=== PATIENT | male | born 1945 | race Caucasian/White ===

== ENCOUNTER 2017-01-30 05:41 | Day surgery (SDC) | payer OTHER, MEDICARE ==
[2017-01-30] VITALS (9 sets, daily range): BP systolic 113–153; BP diastolic 79–94; PULSE 55–74; RESP 11–20; O2SAT 93–98
[~2017-01-30] VITALS: Ht 182.9 cm; Wt 95.4 kg
[~2017-01-30 05:41] MED LIST: ALBU18HF INH; ASPI-973 PO; DOCU240C41 PO; KEN25CR EXT; LISI10TA PO; PRAV10TA2 PO; TAMS0.4C98 PO; levoFLOXacin Inj 500 MG in IV Premix 1 EACH IV SCH
[2017-01-30] MEDS ORDERED: fentaNYL-PF 50 mCg/mL 2 mL Inj ONE (05:42)
[2017-01-30] MEDS ORDERED: levoFLOXacin 500 mg/100 mL D5W Premix IV ONE ×2 (05:42→05:45)
[2017-01-30] MEDS ORDERED: Propofol 10,000 mCg/mL 20 mL Inj ONE (05:42)
[2017-01-30] MEDS ORDERED: Ondansetron 2 mg/mL 2 mL Inj ONE (05:42)
[2017-01-30] MEDS ORDERED: Dexamethasone 10 mg/mL Inj ONE (05:42)
[2017-01-30] MEDS: Lactated Ringer's 1,000 ML IV SCH ×2 (06:28→07:28)
[2017-01-30] MEDS ORDERED: Lactated Ringer's 500 ML IV PRN (07:26)
[2017-01-30] MEDS ORDERED: Lactated Ringer's 1,000 ML IV SCH (07:26)
--- NOTE | 2017-01-30 07:26 | PCM.HPANE ---
Patient Data Surgeon Admitting Provider: Attending Provider:Ramon English MD Primary Care Physician:Jose Jordan MD Other Provider:Angelika Reyingham Anesthesia Reason for Visit History Of Urethral Cancer Ht/WT & BMI Height (Feet): 6 Height (Inches): 0 Weight (Kilograms): 95.4 Body Mass Index 28.00 Allergies Coded Allergies: oxybutynin (Verified Allergy, Unknown, rash, 01/22/17) Past Anesthesia History Anesthesia History: Positive for:: Anesthesia Reactions (low O2 sats after initial bladder surgery, sensitive to meds), Denies:: Abnormal Airway, Difficult Intubation, Malignant Hyperthermia Diabetes History Hx Diabetes?: No MRSA MRSA: Yes (After [employer] shunt at located within [facility] 2009- resolved no further infections) Medications Blood Thinner: Aspirin Hypertension Medication: Yes Home Meds Incl Beta Keiry: No Reported Medications Lisinopril 10 Mg [id number] Mg PO DAILY 30 Days Ref 0 01/22/17 Docusate Calcium (Stool Softener)240 Mg Capsule2 Capsule PO HS PRN For Constipation 01/22/17 Albuterol Sulfate (Ventolin HFA Inhaler)200 Puff/18 Gm Inhaler2 Puff INH Q4 PRN For Wheezing #1 INHALER Ref 0 01/22/17 Triamcinolone Acet (Triamcinolone Acetonide Cream)1 Applic/0.25 Gm Cr1 Applic EXT BID #60 GM Ref 0 01/22/17 Aspirin 81 Mg [id number] Mg PO DAILY Ref 0 01/22/17 Pravastatin 10 Mg [id number] Mg PO HS Ref 0 01/22/17 Discontinued Reported Medications Tamsulosin (Flomax)0.4 Mg Capsule0.4 Mg PO DAILY Ref 0 01/22/17 History History of ENT Problems?: No HEENT History: Denies:: Abnormal Airway Difficult Intubation Hearing Problem Denture Type: Full- Upper Full- Lower Teeth Condition: No Teeth Hx of Heart Problems?: Yes Cardiovascular History: Positive for:: Abdominal Aortic Aneurism (monitored by PCP "stable" per clinic note) Hypertension Denies:: AICD Heart Murmur Irregular Heartbeat Pacemaker Hx of Respiratory Problem?: Yes Respiratory History: Positive for:: COPD Use of Inhalers / NEBS Denies:: Asthma Emphysema Oxygen Administration Pneumonia Tuberculosis Use of C-PAP Machine Hx Neurologic Problems?: Yes Neurological History: Positive for:: CVA Other Neurological Pertinent: past hx of subarachnoid hemorrhage with aneurysm clipping 2009 Pt has [employer] shunt in place Hx of GI Problems?: No Hx of Problems?: Yes Other Pertinent History: hx of bladder cancer; urethral cancer current admission problem Male Hx: Denies:: Prostate Problems Scrotal Mass Testicular Surgery Skin History: Denies:: History Skin Disorders? Pressure Ulcers Hx Musculoskeletal Problems?: Yes Musculoskeletal History: Positive for:: Musculoskeletal Trauma (prior hx of ankle repair) Hx of Psycho/Social Problems?: No Hx Surgeries?: Yes (LT VENTRICULOPERITONEAL SHUNT,ANKLE RPR, TURBT) Hx Any Other Health Problems?: Yes Other History: Positive for:: Cancer (bladder, urethral) Hospitalization (CVA) Denies:: Endocrine Disease Thyroid Disease History Blood Transfusions: Positive for:: Accept Blood Products? Denies:: Blood Transfusions Hx Diabetes: No Hx Alcohol Use: YesAlcoholic Drinks Per Day: 5 drinks dailyHx Substance Use: No Smoking Status: Current Every Day Smoker Heavy Tobacco Smoker Have You Smoked inLast 12 mo: No Stop/Bang S-Snoring: Do You Snore Loudly: No T-Tired: feel tired, fatigued: No O-Obsered: Observed not breath: No P-Blood Pressure: treated: Yes B- Body Mass Index > 35 kg/m2: No A- Age over 50: Yes N- Neck Large Circumference: No G- Gender Male: Yes DINORA Total Score: 3 DINORA Risk Assessment: High Risk, =/>3 Yes DINORA Category 4 OutPt Procedure: Yes Risk Assessment Category Category 1A: Patient has history of documented sleep apnea, and HAS NOT received any narcotic, sedative or anesthesia administration during this stay. Category 1B: Patient has history of documented sleep apnea, and HAS received any narcotic , sedative or anesthesia administration during this stay Category 2: Patient has SUSPECTED Obstructive Sleep Apnea, and HAS received any narcotic , sedative or anesthesia administration during this stay. Category 3: Patient has SUSPECTED Obstructive Sleep Apnea and HAS NOT received narcotic, sedative or anesthesia administration during this stay. Category 4: Outpatient in Procedural Areas with known sleep apnea or who screen positive for High Risk via the STOP/BANG questionnaire. Exam Exam General Appearance: Alert HEENT/AIRWAY: MP 2, Neck Movement (from, 3 fb) Lungs: Clear to Auscultation, Wheezes Heart: Regular Rate/Rhythm Meds/Labs/Diagnostics Admission Meds Current Medications Lactated Ringer's (Lr) 1,000 ml @ 120 mls/hr Q8H20M IV Last administered on t 06:28; Start 01/30/17 at 05:00; Stop 01/30/17 at 13:19 Plan Impression Patient chart reviewed, patient interviewed and anesthestic plan with risks, benefits, and alternatives discussed, and informed consent obtained. NPO per Anesth. Guidelines: Yes ASA Physical Status: ASA3 Severe Disease Anesthetic Plan: GA Bene/Risks/Altern/Consents: Yes HP Complete Prior to Induction: Yes Other Discussed GA vs. SAB. Patient prefers GA. All questions were answered and he agrees to proceed. Drew Decker MD Jan 30, 2017 07:09
[2017-01-30] MEDS ORDERED: MetoCLOpramide 5 mg/mL 2 mL Inj IVPUSH PRN (07:30)
[2017-01-30] MEDS ORDERED: EPHEDrine Sulfate 50 mg/mL Inj IVPUSH PRN (07:30)
[2017-01-30] MEDS ORDERED: HYDROmorphone 1 mg/mL Inj IVPUSH PRN (07:30)
[2017-01-30] MEDS ORDERED: Phenylephrine 10,000 mCg/mL Inj IVPUSH PRN (07:30)
[2017-01-30] MEDS ORDERED: Ondansetron 2 mg/mL 2 mL Inj IVPUSH PRN (07:30)
[2017-01-30] MEDS ORDERED: fentaNYL-PF 50 mCg/mL 2 mL Inj IVPUSH PRN (07:30)
[2017-01-30] MEDS ORDERED: Dexamethasone 4 mg/mL Inj IVPUSH PRN (07:30)
[2017-01-30] MEDS ORDERED: Belladonna Alk-Opium 60 mg Rectal Suppository RECTAL ONE ×2 (08:16→08:20)
--- NOTE | 2017-01-30 08:43 | PCM.ANEP1 ---
Post Anesthesia PACU Phase 1 Assessment Vital Signs Vital Signs Date Time Temp Pulse Resp B/P Pulse Ox O2 Delivery O2 Flow Rate FiO2 01/30/17 08:40 68 11 130/80 97 Room Air 01/30/17 08:35 67 12 113/94 98 Simple Mask 6 01/30/17 08:30 72 14 145/84 98 Simple Mask 6 01/30/17 08:27 36.6 128/79 01/30/17 07:31 36.4 64 20 135/86 95 Room Air Anesthetic Administered: GA Level of Alertness: Awake, talking OLVERA's with Equal Strength: Yes Pain: No Nausea or Vomiting: No CV Function & Hydration Stable: Yes Airway Device: Oxygen Delivery: Simple Mask Lungs: Clear to Auscultation, Wheezes Dermatome Level: Full Sensation PACU Phase 2 Assessment Complications: No Follow up Care: N/A Patient Instructions Provided: N/A Drew Decker MD Jan 30, 2017 08:43
[2017-01-30] MEDS ORDERED: Phenazopyridine 97.5 mg Tablet PO ONE (08:45)
--- NOTE | 2017-01-30 08:46 | PCM.SURGPO ---
Immediate Operative Note Date of Surgery: Jan 30, 2017 Pre Operative Diagnosis Urethral tumors Post Operative Diagnosis Urethral tumors Procedure Cystoscopy, transurethral resection of urethral tumors Surgeon and Broadcast Correspondent Surgeon: Ramon English MD Assistants: None Findings Cystoscopy revealed several small low-lying papillary pendulous urethral tumors (at 2 o'clock to 6 o'clock) and no bladder tumors, lesions, or calculi. Transurethral resection of urethral tumors was performed using bipolar loop electrocautery. No fulguration of base of urethral tumor resection was performed. Complications There were no periprocedural complications identified. Surgical Specimen Removed: Yes Specimen sent to Pathology: Yes Surgical Specimen description: Urethral tumors Anesthetic Administered: GA Grafts, Implants: Other (20F Reid catheter to straight drainage) Output, Estimated Blood Loss: <5 Blood Admin during surgery: No Additional information Patient to be discharged home with Reid, to RTC in 2 weeks for post-op visit and trial of void (AM appt.). Ramon English MD Jan 30, 2017 08:46
--- NOTE | 2017-01-30 09:01 | PCM.DISURG ---
Surgical Discharge Instruction Date of Service Jan 30, 2017 Dates of Hospitalization Date of Hospital Admission Jan 30, 2017 Providers Admitting Physician: Ramon English MD Primary Care Physician: Jose Jordan MD Attending Physician: Ramon English MD Discharge Diagnosis Discharge Diagnosis Urethral tumors Post Operative diagnosis Urethral tumors Diet Discharge Diet: No restrictions, Other (Drink at least 10-12 8oz. glasses (3 liters) of fluids per day as long as there is blood in the urine) Activity Discharge Activity-General: No driving while taking narcotic, Other (No strenuous exercise/activity or moderate or heavy lifting (> 10lbs.) as long as there is blood in the urine) Dressing and Incisional Care Hygiene: May shower Follow Up Plan Follow-up Provider (F9): Ramon English MD Follow-up appointment: Weeks (2 weeks for post-op visit and trial of void (AM appt.)) Call your provider for: Fever, Chills, Vomiting, Other (Pain uncontrolled by pain medications, non-draining Reid catheter) Ramon English MD Jan 30, 2017 09:01
[2017-01-30] MEDS ORDERED: HYDROcodone-APAP 5-325 mg Tablet PO PRN (09:05)
--- NOTE | 2017-01-31 20:36 | OP ---
[address] [address] OPERATIVE REPORT PATIENT: LAMAR ALVES : 1945 MR#: [id number] ADMIT: 01/30/2017 JOB ID: [id number] DATE OF SURGERY: 01/30/2017 SURGEON: Ramon English MD PRICE CHECKER: None. PREOPERATIVE DIAGNOSIS(ES): Urethral tumors. POSTOPERATIVE DIAGNOSIS(ES): Urethral tumors. PROCEDURE: Cystoscopy, transurethral resection of urethral tumors. ANESTHESIA: General. ESTIMATED BLOOD LOSS: Less than 5 mL. SPECIMENS: Urethral tumors. DRAINS: A 20-Omani Reid catheter to straight drainage. COMPLICATION: None. CONDITION: Stable. FINDINGS: Cystoscopy revealed several small low-lying papillary pendulous urethral tumors (at 2 o'clock to 6 o'clock) and no bladder tumors, lesions or calculi. Transurethral resection of urethral tumors was performed using bipolar loop electrocautery. No fulguration of base of urethral tumor resection was performed. INDICATIONS: The patient is a 71-year-old male with history of bladder cancer and history of urethral cancer, found to have urethral tumors on office cystoscopy. The patient now presents for cystoscopy and transurethral resection of urethral tumors. PROCEDURE IN DETAIL: Patient was brought to the operating room and placed supine on the operating table. The patient was given Levaquin IV antibiotics. Sequential compression device boots were placed. General anesthesia was administered. The patient brought down in dorsal lithotomy position. The patient was prepped and draped in standard surgical fashion. A 26-Omani continuous flow resectoscope was placed into the distal urethra without difficulty. Cystoscopy revealed several small low-lying papillary pendulous urethral tumors (at 2 o'clock to 6 o'clock) bilobar prostatic hypertrophy. No bladder tumors, lesions or calculi and mildly trabeculated bladder. Then transurethral resection of the urethral tumors was performed using Thunderbeat bipolar loop electrocautery. The urethral tumor specimen was sent to Pathology for permanent specimen. No fulguration of the base of the urethral tumor resection or surrounding urethral mucosa was performed to decrease the risk of formation of urethral stricture. Minimal bleeding was seen. The continuous-flow resectoscope was removed from the patient. A 20-Omani Reid catheter was placed through the urethra into the bladder without difficulty. Reid catheter balloon was inflated with 10 mL sterile water. Reid catheter was placed to straight drainage. The skin was cleaned and dried. The patient was placed in supine position. The patient was awakened from general anesthesia and transferred to the recovery room in stable condition. The patient tolerated the procedure well. PLAN: Plan is for the patient be discharged home with a Reid catheter and return to see me in the office in two weeks for postop visit and trial of void.
--- NOTE | 2017-02-03 15:36 | PATH ---
SURGICAL PATHOLOGY Attending Physician:Ramon English MD CASE STATUS: Signed Out PATIENT NAME: LAMAR ALVES PID: [id number] : 1945 DATE COLLECTED:01/30/2017 19:34 SPECIMEN: Urethra, Biopsy CLINICAL HISTORY: HISTORY OF URETHRAL CANCER 1). URETHRAL TUMORS FINAL DIAGNOSIS: 1.URETHRAL BIOPSY: PAPILLARY UROTHELIAL CARCINOMA, LOW-GRADE. NO INVASION OF LAMINA PROPRIA OR LYMPHOVASCULAR SPACE IS IDENTIFIED. MUSCULARIS PROPRIA IS NOT PRESENT IN THE BIOPSY. ICD10 C68.0 GROSS DESCRIPTION: The specimen is received in one formalin filled container labeled with the patient's name, sublabeled "urethral tumor" and consists of 2 portions of tissue which aggregate to 0.3 x 0.3 x 0.2 CM. The specimen is entirely submitted in one cassette. 01/30/2017DC MICRO DESCRIPTION: See diagnosis. ICD-9 CODES: CPT CODES: 1: 18766 Electronically Signed Out Charley Hermosillo MD [facility] [address], [place] [address] Technical component performed at [facility], [facility] [address], [place], [address]
== END 2017-01-30 23:59 | disposition home or self-care (01) ==
LOC: SAS 05:41
PROVIDERS: ATTEND Urology
PROC: 0TBD8ZZ Excision of Urethra, Via Natural or Artificial Opening Endoscopic (ICD-10-PCS; principal; 2017-01-30 07:30)
DX: C68.0 Malignant neoplasm of urethra (principal); N40.1 Benign prostatic hyperplasia with lower urinary tract symptoms; R35.1 Nocturia; R35.0 Frequency of micturition; Z87.891 Personal history of nicotine dependence; Z85.51 Personal history of malignant neoplasm of bladder; Z79.82 Long term (current) use of aspirin; N28.1 Cyst of kidney, acquired

== ENCOUNTER 2017-02-03 09:39 | Emergency (ER) | payer OTHER, MEDICARE ==
[~2017-02-03] VITALS: Ht 185.4 cm; Wt 95.5 kg
[~2017-02-03 09:39] MED LIST changes: -TAMS0.4C98 PO; -levoFLOXacin Inj 500 MG in IV Premix 1 EACH IV SCH
[2017-02-03 09:53] VITALS: BP 134/84; PULSE 96; RESP 16; O2SAT 93
--- NOTE | 2017-02-03 10:38 | ED.REPORT ---
HPI-General Illness Date of Service Feb 03, 2017 ED Provider: John Rios MD Pt is a 71 y/o male w/ a hx of bladder CA s/p TURBT, urethral CA s/p recent resection, presenting to the ED c/o lower extremity edema onset yesterday. On 01/30 the patient had a cystoscopy performed by urologist Dr. Ramon English due to urethral tumors which were resected. The procedure was short and uncomplicated leading to the patient leaving a few hours after the procedure. He left with a 20-Kenyan Reid catheter in place. Since yesterday, the patient has been experiencing edema of the ankles and calves symmetrically bilaterally. He has also been experiencing bladder spasms which were previously well controlled by his discharge pain medication although he ran out this morning. He c/o associated constipation. Pt denies nausea, vomiting, fever. He does relate that he has been immobile for the past few days. Nursing Notes Stated Complaint: BILATERAL LEG/ANKLE SWELLING, POST OP Chief Complaint: Male Abdominal Pain Nursing Notes Reviewed: Yes Allergies: Coded Allergies: oxybutynin (Verified Allergy, Unknown, rash, 01/22/17) Scheduled Aspirin (Aspirin) 81 Mg Tablet 81 MG PO DAILY Lisinopril (Lisinopril) 10 Mg Tablet 10 MG PO DAILY Pravastatin (Pravastatin) 10 Mg Tablet 10 MG PO HS Triamcinolone Acet (Triamcinolone Acetonide Cream) 1 Applic/0.25 Gm Cr 1 APPLIC EXT BID Scheduled PRN Albuterol Sulfate (Ventolin HFA Inhaler) 200 Puff/18 Gm Inhaler 2 PUFF INH Q4 PRN PRN For Wheezing Docusate Calcium (Stool Softener) 240 Mg Capsule 2 CAPSULE PO HS PRN PRN For Constipation General Time Seen by MD: 10:37 Chief Complaint Other (lower extremity edema) Hx Obtained From: Patient Arrived By: Walk-in Sudden in Onset?: No Onset Occurred: Yesterday Symptom Duration: Since onset Location: : Abdomen Quality: Painful Severity: Current: No pain currently Severity: Maximum: Moderate Recent Healthcare: Recent doctor visit, Previous surgery Similar Sx Previous: No Past Medical History Past Medical History Notes: Urologist: Ramon English Past Medical History Stable AAA HTN COPD CVA Hx SAH with aneurysm clipping 2009 and [employer] shunt Hx of bladder and uretheral CA s/p TURBT and urethral tumor resection Past Surgical History Ankle repair Aneurysm clipping 2010 Left ventriculoperitoneal shunt placement TURBT Smoking History Current Every Day Smoker, Heavy Tobacco Smoker Social History Other Social History: Ambulatory Status Independent Review of Systems Full Review of Systems Constitutional: Denies: Fever GI: Reports: Abdominal pain, Constipation, Denies: Nausea, Vomiting Musculoskeletal: Reports: Extremity swelling Complete sys rev & neg: except as marked. Physical Exam Vital Signs Vital Signs Date Time Temp Pulse Resp B/P Pulse Ox O2 Delivery O2 Flow Rate FiO2 02/03/17 09:53 37 96 16 134/84 93 Room Air Initial VS: Reviewed, Vital signs normal Head / Eyes: Atraumatic, Normocephalic ENT: Mucous membranes moist, Conjunctiva normal, No scleral icterus Neck: Supple, Full range of motion Respiratory: Breath sounds normal, Clear to auscultation, No respiratory distress Cardiovascular: Regular rate & rhythm, Heart sounds normal, Intact distal pulses Skin: Warm, Dry, No cyanosis Neurologic: Alert, Oriented, Nonfocal Psychiatric: Mood/affect normal, Behavior normal, Normal thought content General/Constitutional: Awake, Alert, No acute distress, Cooperative, Not toxic appearing Abdomen: Atraumatic, Soft, Non-tender, No guarding, No rebound, BS normoactive , No palpable mass Bowel Sounds / Distention: Positive: Distention mild Lower Extremity / Pelvis / MS: Atraumatic, Full range of motion, Non-tender, No erythema, No deformity, Neurologic intact, Vascular intact Mild edema bilaterally Male Genitourinary: Atraumatic Reid catheter in place Rectum / Perineum: Atraumatic No stool in rectum Interpretation & Diagnostics Lab Results Interpretation Test 02/03/17 11:13 Urine Color [place] (YELLOW) Urine Appearance Hazy (CLEAR,HAZY) Urine pH (5.0-8.0) Urine Specific [place] 1.020 (1.003-1.035) Urine Protein mg/dL (NEG,TRACE) Urine Glucose (UA) mg/dL (NEGATIVE) Urine Ketones mg/dL (NEGATIVE) Urine Occult Blood (NEGATIVE) Urine Nitrite (NEGATIVE) Urine Bilirubin (NEGATIVE) Urine Urobilinogen mg/dL (NORMAL) Urine Leukocyte Esterase (NEGATIVE) Urine RBC 11-50/hpf (0-2) Urine WBC 0-5/hpf (0-5) Urine Epithelial Cells Occasional/hpf (NONE-MOD) Urine Crystals None seen (NONE SEEN) Urine Bacteria None/hpf (NONE-FEW) Urine Hyaline Casts None/lpf (NONE) Urine Granular Casts None seen (NONE SEEN) Urine Waxy Casts None seen (NONE SEEN) Urine Red Blood Cell Casts None seen (NONE SEEN) Urine White Blood Cell Casts None seen (NONE SEEN) Urine Mucus None seen (None Seen) Urine Trichomonas None seen (NONE SEEN) Urine Yeast None (NONE SEEN) Urinalysis Comment None Urine Culture Reflexed Not indicated Re-Eval/Medical Decision Source of Hx: Old records Consultation : Referral / Consult Name: RaquelRena Elsi DELACRUZ Consulted With: Urology Call Returned at: 13:04 Auto Service Dispatcher: Agrees with eval, Agrees with plan Note: Agrees with plan for symptomatic management of bladder spasm and constipation. Catheter has to stay in for 2 weeks. Counseled Regarding: Diagnosis, Lab results, Need for follow-up, When/why to return to ED Discharge & Departure Primary Impression: Lower extremity edema Laterality: bilateral Qualified Code: R60.0 - Localized edema Additional Impressions: Painful bladder spasm Constipation due to opioid therapy Disposition: Home Discharge Condition All VS Reviewed: Yes Condition: Stable Patient Instructions: Constipation (ED) Additional Instructions: Discontinue the Vicodin (hydrocodone/APAP). No suspicion of infection at this time. It is recommended that the catheter remain in place for the 2 full weeks as instructed by Dr. English. I recommended Tylenol or ibuprofen as needed for pain. For bladder spasms I recommend lorazepam 1-2 tablets every 6 hours as needed for severe spasms. Do not drink alcohol with this medication. Regarding the constipation I recommend following: Magnesium citrate 1-10 ounce bottle this afternoon, this is available over-the- counter it is located with the laxatives. If you are having trouble finding it , asked the pharmacist. If this is insufficient I recommend a bowel prep solution which is available by prescription tomorrow. Referrals: Jose Jordan MD (PCP) Ramon English MD Scribe Attestation Portions of this note were transcribed by Jovanni Presley. I, Dr. Rios personally performed the history, physical exam and medical decision-making; I reviewed and confirmed the accuracy of the information in the transcribed note. copies to: Jose Jordan MD; Ramon English MD, Kirk H MD Feb 03, 2017 10:38 JOVANNI PRESLEY Feb 03, 2017 10:45
[2017-02-03] MEDS ORDERED: LORazepam 1 mg Tablet PO ONE (10:45)
[2017-02-03 11:34] LABS: APPEARANCE,URINE HAZY (CLEAR,HAZY); COLOR,URINE ORANGE (YELLOW)
[2017-02-03] MEDS ORDERED: LORA-303 PO (13:40)
[2017-02-03] MEDS ORDERED: SODI354S PO (13:40)
== END 2017-02-03 13:44 | disposition home or self-care (01) ==
LOC: SED 09:39
DX: R60.0 Localized edema (principal); N32.89 Other specified disorders of bladder; K59.03 Drug induced constipation; T40.2X5A Adverse effect of other opioids, initial encounter; I10 Essential (primary) hypertension; F17.200 Nicotine dependence, unspecified, uncomplicated; Z86.73 Personal history of transient ischemic attack (TIA), and cerebral infarction without residual deficits; Z85.51 Personal history of malignant neoplasm of bladder; Z79.82 Long term (current) use of aspirin; Z88.8 Allergy status to other drugs, medicaments and biological substances